=== PATIENT | female | born 2000 | race Two or more races ===

== ENCOUNTER 2024-09-23 10:45 | Emergency (ER) | payer OTHER ==
[~2024-09-23] VITALS: Ht 152.4 cm; Wt 45.4 kg
[2024-09-23 14:34] LABS: HEMATOCRIT 38.3 % (36.0-45.00); HEMOGLOBIN 13.1 g/dL (12.0-15.00); MEAN CELL VOLUME 86.7 fL (80.00-100.00); MEAN CORPUSCULAR HEMOGLOBIN 29.7 pg (27.00-32.0); MEAN CORPUSCULAR HGB CONC 34.3 g/dl (32.0-36.0); PLATELET COUNT 199 K/uL (150-450); RED BLOOD COUNT 4.42 M/uL (4.00-6.00); RED CELL DISTRIBUTION WIDTH 13.5 % (11.5-14.5)
[2024-09-23 14:57] LABS: CALCIUM 8.9 mg/dL (8.5-10.1); CREATININE SERUM 0.87 mg/dL (0.55-1.02); GFR 79.33; POTASSIUM 4.12 mEq/L (3.5-5.1)
[2024-09-23 15:15] LABS: PH,URINE 5.5 (5.0-8.0); URINE APPEARANCE Clear; URINE BILIRRUBIN Negative (NEGATIVE); URINE BLOOD Trace; URINE COLOR Yellow; URINE GLUCOSE Negative (NEGATIVE); URINE KETONE Negative (NEGATIVE); URINE LEUKOCYTE Trace; URINE NITRATE Negative; URINE PROTEIN Negative (NEGATIVE); URINE UROBILINOGEN 0.2 E.U./dl
[2024-09-23 15:19] LABS: URINE BACTERIA 20.7 uL (0.0-1933); URINE EPITHELIAL CELLS 6.4 uL (0.0-38.8); URINE RBC 2.9 uL (0.0-20.8); URINE WBC 24.8 uL (0.0-23.2)
== END 2024-09-23 17:06 | disposition home or self-care (01) ==
LOC: ER 10:47
PROVIDERS: Emergency Medicine
DX: U07.1 COVID-19 (principal)